=== PATIENT | female | born 1990 | race Caucasian/White ===

== ENCOUNTER 2018-07-09 19:33 | Emergency (ER) | payer OTHER ==
[2018-07-09 19:48] VITALS: BP 143/70
[2018-07-09] MEDS ORDERED: NAPROXEN 250 MG TABLET PO STA (20:09)
[2018-07-09] MEDS ORDERED: AMOXICILLIN 250 MG CAPSULE PO STA (20:16)
--- NOTE | 2018-07-09 20:17 | ED Physician Documentation ---
History of Present Illness - Stated complaint Stated Complaint: FEVER - Chief complaint Chief Complaint: Heent - History obtained from History obtained from: Patient - Additonal information Additional information: 27-year-old female presents the emergency department for evaluation of a sore throat and fever which developed today. The patient noticed white spots on her tonsil. The patient denies difficulty swallowing, handling her secretions or opening her mouth or facial swelling. Symptoms are described as moderate. No other associated symptoms. Review of Systems Constitutional: reports: Fever Eyes: denies: Loss of vision Ears: denies: Ear pain Nose: denies: Congestion Throat: reports: Sore throat, Swollen tonsils Cardiac: denies: Chest pain / pressure Respiratory: denies: Cough GI: denies: Abdominal Pain : denies: Dysuria Immunocompromised: denies: Chemotherapy PD PAST MEDICAL HISTORY - Past Medical History Past Medical History: Yes Cardiovascular: None Respiratory: None Neuro: None Endocrine/Autoimmune: None GI: None [employer]: None : None HEENT: Other Psych: Eating disorder Musculoskeletal: None Derm: None - Past Surgical History Past Surgical History: Yes General: Other /[employer]: Breast reduction - Allergies Allergies/Adverse Reactions: Allergies Allergy/AdvReac Type Severity Reaction Status Date / Time No Known Drug Allergies Allergy Verified 07/09/18 19:45 - Social History Does the pt smoke?: No Smoking Status: Never smoker Does the pt drink ETOH?: No Does the pt have substance abuse?: No - Immunizations Immunizations are current?: Yes - POLST Patient has POLST: No PD ED PE NORMAL - General General: Alert and oriented X 3, No acute distress - HEENT HEENT: Atraumatic, PERRL, EOMI, Ears normal. No: Pharynx benign (The patient has bilateral erythematous changes, the patient has right swelling of the tonsil with exudate. There is no evidence of peritonsillar abscess or a retropharyngeal abscess. The tongue is within normal limits and the floor the mouth is moist and soft) - Neck Neck: Supple, no meningeal sign. No: No adenopathy (The patient has cervical lymphadenopathyOn the left) - Cardiac Cardiac: RRR - Derm Derm: Normal color - Neuro Neuro: Alert and oriented X 3, Normal speech Results - Vitals Vitals: Vital Signs - 24 hr 07/09/18 07/09/18 19:43 20:16 Temperature 37.6 C H Heart Rate 107 H Respiratory 17 16 Rate Blood Pressure 143/70 H O2 Saturation 99 Oxygen O2 Source Room air - Labs Labs: Laboratory Tests 07/09/18 19:40 Group A Strep Rapid POSITIVE H PD MEDICAL DECISION MAKING - ED course ED course: The patient has tested positive for strep, The patient has no evidence of a peritonsillar abscess or retropharyngeal abscess on examination. Presently, the patient appears appropriate for discharge and outpatient management. I discussed the patient warning signs and recommended returning for any worsening or any concerns
== END 2018-07-09 20:43 | disposition home or self-care (01) ==
LOC: ED 19:33
DX: J03.00 Acute streptococcal tonsillitis, unspecified (principal)
CPT/HCPCS: 87430; 99283; A9270

== ENCOUNTER 2018-12-03 11:48 | Outpatient (CLI) | payer OTHER | END 2018-12-03 11:49 | disposition EMS.NT | LOC: EMS 11:48 | PROVIDERS: ATTEND Surgery | DX: R58 Hemorrhage, not elsewhere classified (principal) ==